=== PATIENT | male | born 1965 | race Caucasian/White ===

== ENCOUNTER 2019-03-27 07:32 | Emergency (ER) | payer SELFPAY ==
[2019-03-27] MEDS ORDERED: KETOROLAC 30 MG/ML INJ IV ONE (08:04)
[2019-03-27] MEDS ORDERED: KETOROLAC 30 MG/ML INJ ONE (08:22)
[2019-03-27 08:37] LABS: Absolute Lymphocytes (CBC) 1.1 K/uL (0.7-4.9); Basophils % 0.7 % (0-1.3); Hematocrit 45.3 % (39.6-49.0); Lymphocytes % 20.8 % (15.3-44.8); MPV 10.4 fL (7.6-11.3); RBC Red Blood Cell Count 4.65 M/uL (4.33-5.43)
[2019-03-27 08:43] LABS: BUN Blood Urea Nitrogen 17 mg/dL (7-18); Bicarbonate 27 mmol/L (21-32); Creatine Phosphokinase 154 U/L (39-308); Glucose Level 75 mg/dL (74-106); Sodium Level 141 mmol/L (136-145)
[2019-03-27 09:11] LABS: Blood Morphology Comment NOT SEEN (NOT SEEN); Platelet Estimate DECR
--- NOTE | 2019-03-27 15:55 | ER ---
Nurse's Notes [facility] Name: Vlad Rojas Age: 53 yrs Sex: Male : 1965 Arrival Date: 03/27/2019 Time: 07:37 Bed External Waiting [facility] MD: Diagnosis: Muscle spasm Presentation: 03/27 07:56 Presenting complaint: Patient states: BLE SCIATICA PATTERN PAIN x2 WK. Transition of bp care: patient was not received from another setting of care. Onset of symptoms is unknown. Risk Assessment: Do you want to hurt yourself or someone else? Patient reports no desire to harm self or others. Initial Sepsis Screen: Does the patient meet any 2 criteria? No. Patient's initial sepsis screen is negative. Does the patient have a suspected source of infection? No. Patient's initial sepsis screen is negative. Care prior to arrival: None. 07:56 Method Of Arrival: Ambulatory bp 07:56 Acuity: YANICK 5 bp Triage Assessment: 07:56 General: Appears in no apparent distress. uncomfortable, Behavior is cooperative, bp appropriate for age, anxious. Pain: Complains of pain in right leg and left leg. EENT: No deficits noted. Neuro: No deficits noted. Cardiovascular: No deficits noted. Respiratory: No deficits noted. GI: No signs and/or symptoms were reported involving the gastrointestinal system. : No signs and/or symptoms were reported regarding the genitourinary system. Derm: No deficits noted. Musculoskeletal: No signs and/or symptoms reported regarding the musculoskeletal system. - Immunization history:: Adult Immunizations up to date. - Social history:: Smoking status: Patient uses tobacco products, smokes one pack cigarettes per day. - Ebola Screening: : No symptoms or risks identified at this time. Screenin:00 Abuse screen: Denies threats or abuse. Denies injuries from another. Nutritional bp screening: No deficits noted. Tuberculosis screening: No symptoms or risk factors identified. Fall Risk None identified. Assessment: 08:00 General: SEE TRIAGE NOTE. bp 09:45 Reassessment: PT D/C HOME AMBULATORY , DX WITH MUSCLE SPASM. bp Vital Signs: 07:56 BP 151 / 69; Pulse 73; Resp 16; Temp 97; Pulse Ox 98% ; Weight 97.52 kg; Height 5 ft. bp 10 in. (177.80 cm); 09:11 BP 112 / 56; Pulse 67; Resp 15; Pulse Ox 97% ; bp 07:56 Body Mass Index 30.85 (97.52 kg, 177.80 cm) bp ED Course: 07:37 Patient arrived in ED. as 07:53 [facility]C [facility] kb 07:53 Tr Patel MD is Attending Physician. kb 07:56 Mike Banks, RN is Primary Nurse. bp 07:56 Arm band placed on. bp 07:57 Triage completed. bp 08:00 Patient has correct armband on for positive identification. Bed in low position. Call bp light in reach. Side rails up X2. 08:25 Inserted saline lock: 20 gauge in right forearm, using aseptic technique. Blood bp collected. 09:46 No provider procedures requiring assistance completed. IV discontinued, intact, bp bleeding controlled, No redness/swelling at site. Pressure dressing applied. Administered Medications: No medications were administered Outcome: 09:19 Discharge ordered by . kb 09:46 Discharged to home ambulatory. bp 09:46 Condition: stable 09:46 Discharge instructions given to patient, Instructed on discharge instructions, follow up and referral plans. medication usage, Demonstrated understanding of instructions, follow-up care, medications, Prescriptions given X 2. 09:50 Patient left the ED. iw Signatures: Alisa Torres FNP-C FNP-Ckb Martinez, Amelia as Williams, Irene, RN RN iw Mike Banks, RN RN bp Corrections: (The following items were deleted from the chart) 14:00 13:59 Patient left the ED. iw iw
--- NOTE | 2019-03-27 15:55 | EDPHYS ---
Physician Documentation [facility] Name: Vlad Rojas Age: 53 yrs Sex: Male : 1965 Arrival Date: 03/27/2019 Time: 07:37 Bed External Waiting Private MD: ED Physician Tr Patel HPI: 03/27 09:53 This 53 yrs old Male presents to ER via Ambulatory with complaints of muscle cramps. kb 09:55 The patient presents with cramps. The complaints affect the right hamstring and left kb hamstring. Context: The problem was sustained at home, resulted from an unknown cause, the patient can fully bear weight, the patient is able to ambulate. Onset: The symptoms/episode began/occurred 2 week(s) ago. Modifying factors: The symptoms are alleviated by nothing. the symptoms are aggravated by nothing. Associated signs and symptoms: The patient has no apparent associated signs or symptoms. Severity of symptoms: At their worst the symptoms were moderate, in the emergency department the symptoms are unchanged. The patient has not experienced similar symptoms in the past. The patient has not recently seen a physician. - Immunization history:: Adult Immunizations up to date. - Social history:: Smoking status: Patient uses tobacco products, smokes one pack cigarettes per day. - Ebola Screening: : No symptoms or risks identified at this time. ROS: 09:55 Constitutional: Negative for fever, chills, and weight loss, Cardiovascular: Negative kb for chest pain, palpitations, and edema, Respiratory: Negative for shortness of breath, cough, wheezing, and pleuritic chest pain, Abdomen/GI: Negative for abdominal pain, nausea, vomiting, diarrhea, and constipation, Back: Negative for injury and pain, : Negative for injury, bleeding, discharge, and swelling, Skin: Negative for injury, rash, and discoloration, Neuro: Negative for headache, weakness, numbness, tingling, and seizure. 09:57 MS/extremity: Positive for pain, cramping. kb Exam: 09:58 Constitutional: This is a well developed, well nourished patient who is awake, alert, kb and in no acute distress. Head/Face: Normocephalic, atraumatic. ENT: Nares patent. No nasal discharge, no septal abnormalities noted. Tympanic membranes are normal and external auditory canals are clear. Oropharynx with no redness, swelling, or masses, exudates, or evidence of obstruction, uvula midline. Mucous membranes moist. Neck: Trachea midline, no thyromegaly or masses palpated, and no cervical lymphadenopathy. Supple, full range of motion without nuchal rigidity, or vertebral point tenderness. No Meningismus. Chest/axilla: Normal chest wall appearance and motion. Nontender with no deformity. No lesions are appreciated. Cardiovascular: Regular rate and rhythm with a normal S1 and S2. No gallops, murmurs, or rubs. Normal PMI, no JVD. No pulse deficits. Respiratory: Lungs have equal breath sounds bilaterally, clear to auscultation and percussion. No rales, rhonchi or wheezes noted. No increased work of breathing, no retractions or nasal flaring. Abdomen/GI: Soft, non-tender, with normal bowel sounds. No distension or tympany. No guarding or rebound. No evidence of tenderness throughout. Back: No spinal tenderness. No costovertebral tenderness. Full range of motion. Skin: Warm, dry with normal turgor. Normal color with no rashes, no lesions, and no evidence of cellulitis. MS/ Extremity: Pulses equal, no cyanosis. Neurovascular intact. Full, normal range of motion. Neuro: Awake and alert, GCS 15, oriented to person, place, time, and situation. Cranial nerves II-XII grossly intact. Motor strength 5/5 in all extremities. Sensory grossly intact. Cerebellar exam normal. Normal gait. Vital Signs: 07:56 BP 151 / 69; Pulse 73; Resp 16; Temp 97; Pulse Ox 98% ; Weight 97.52 kg; Height 5 ft. bp 10 in. (177.80 cm); 09:11 BP 112 / 56; Pulse 67; Resp 15; Pulse Ox 97% ; bp 07:56 Body Mass Index 30.85 (97.52 kg, 177.80 cm) bp MDM: 07:53 Patient medically screened. kb 09:57 Data reviewed: vital signs, nurses notes. Data interpreted: Pulse oximetry: on room air kb is 97 %. Interpretation: normal. Counseling: I had a detailed discussion with the patient and/or guardian regarding: the historical points, exam findings, and any diagnostic results supporting the discharge/admit diagnosis, lab results, the need for outpatient follow up, a family practitioner, to return to the emergency department if symptoms worsen or persist or if there are any questions or concerns that arise at home. Administered Medications: No medications were administered Disposition: 13:42 Co-signature as Attending Physician, Tr Patel MD. rn Disposition: 03/27/19 09:19 Discharged to Home. Impression: Muscle spasm. - Condition is Stable. - Discharge Instructions: Muscle Cramps and Spasms. - Prescriptions for Ibuprofen 600 mg Oral Tablet - take 1 tablet by ORAL route every 6 hours As needed take with food; 30 tablet. Cyclobenzaprine 10 mg Oral Tablet - take 1 tablet by ORAL route every 8 hours As needed; 21 tablet. - Medication Reconciliation Form, Thank You Letter, Antibiotic Education, Prescription Opioid Use form. - Follow up: Emergency Department; When: As needed; Reason: Worsening of condition. Follow up: Private Physician; When: 2 - 3 days; Reason: Recheck today's complaints, Continuance of care, Re-evaluation by your physician. Signatures: Alisa Torres, EVS ATTENDANT-C EVS ATTENDANT-Ckb Harleen Lynn RN RN iw Nieto, Roman, MD MD rn Peltier, Brian, RN RN bp Corrections: (The following items were deleted from the chart) 09:57 09:55 Constitutional: Negative for fever, chills, and weight loss, Cardiovascular: kb Negative for chest pain, palpitations, and edema, Respiratory: Negative for shortness of breath, cough, wheezing, and pleuritic chest pain, Abdomen/GI: Negative for abdominal pain, nausea, vomiting, diarrhea, and constipation, Back: Negative for injury and pain, : Negative for injury, bleeding, discharge, and swelling, MS/Extremity: Negative for injury and deformity, Skin: Negative for injury, rash, and discoloration, Neuro: Negative for headache, weakness, numbness, tingling, and seizure, kb 13:59 09:19 03/27/2019 09:19 Discharged to Home. Impression: Muscle spasm. Condition is iw Stable. Forms are Medication Reconciliation Form, Thank You Letter, Antibiotic Education, Prescription Opioid Use. Follow up: Emergency Department; When: As needed; Reason: Worsening of condition. Follow up: Private Physician; When: 2 - 3 days; Reason: Recheck today's complaints, Continuance of care, Re-evaluation by your physician. kb
[2019-03-27 17:55] VITALS: TEMP 97
[2019-03-27 17:56] VITALS: BP 112/56; O2SAT 97
== END 2019-03-27 13:59 | disposition home or self-care (01) ==
LOC: ER 07:32
DX: M62.838 Other muscle spasm (principal); F17.210 Nicotine dependence, cigarettes, uncomplicated
CPT/HCPCS: 36415; 80048; 82550; 85025; 99283

== ENCOUNTER 2024-04-12 19:44 | Emergency (ER) | payer OTHER ==
--- OUTSIDE RECORDS SUMMARY | 2024-04-12 19:46 | XMS REPORT | Continuity of Care Document ---
Author Name Unknown Address [address] [place] [address] [facility] thconnect Address [address] [place] [address] Care Team Providers Care Canopy Inspector Name Role Phone Unavailable Unavailable Unavailable Encounters Start Date/Time End Date/Time Encounter Type Admission Type Attending [facility] Emergency Department Facility Care Department Encounter ID Source 2023-02-11 09:31:17 2023-02-11 09:31:17 Outpatient [facility] SFA [id number] Rell Hensley 2023-01-04 16:53:22 2023-01-04 16:53:22 Outpatient SFA SFA [id number] Rell Hensley 2022-04-10 09:53:38 2022-04-10 09:53:38 Outpatient [facility]FA SFA [id number] Rell Hensley
[2024-04-13 00:31] LABS: Sqamous Epithelial <5 /HPF (None Seen); Urine Bacteria <20 /HPF (<20); Urine Bilirubin NEGATIVE (Negative); Urine Blood 3+ (OVER) (Negative); Urine Clarity Extremely Turbid (Clear); Urine Color Light-Orange (Yellow); Urine Crystals Unidentified Few /HPF (None Seen); Urine Culture Reflex Order REFLEXED; Urine Glucose NEGATIVE (Negative); Urine Ketones NEGATIVE (Negative); Urine Micro Reflex YN NO BILL MICROSCOPIC; Urine Mucus Slight /HPF (None Seen); Urine Nitrite NEGATIVE (Negative); Urine Protein 3+ (Negative); Urine RBC >50 /HPF (None Seen); Urine Urobilinogen Normal (Normal); Urine WBC >50 /HPF (<5); Urine WBC Clump Occasional /HPF (None Seen)
--- NOTE | 2024-04-13 01:10 | ER ---
Nurse's Notes [facility] Name: Vlad Rojas Age: 58 yrs Sex: Male : 1965 Arrival Date: 04/12/2024 Time: 19:44 Bed 9 Private MD: Diagnosis: UTI/ Urinary tract infection, site not specified Presentation: 04/12 20:24 Chief complaint: Patient states: Unable to urinate onset this morning. Pt states that cm10 he was also having urinary frequency prior to the urinary retention. Coronavirus screen: Client denies travel out of the [place] in the last 14 days. Ebola Screen: Patient denies travel to an Ebola-affected area in the 21 days before illness onset. No symptoms or risks identified at this time. Initial Sepsis Screen: Does the patient meet any 2 criteria? No. Patient's initial sepsis screen is negative. Does the patient have a suspected source of infection? No. Patient's initial sepsis screen is negative. Risk Assessment: Do you want to hurt yourself or someone else? Patient reports no desire to harm self or others. Onset of symptoms was April 12, 2024. 20:24 Method Of Arrival: Ambulatory cm10 20:24 Acuity: YANICK 3 cm10 Triage Assessment: 20:25 General: Appears in no apparent distress. comfortable, Behavior is calm, cooperative. cm10 Pain: Denies pain. Neuro: No deficits noted. Level of Consciousness is awake, alert, obeys commands, Oriented to person, place, time, situation, Appropriate for age. Respiratory: No deficits noted. Airway is patent Respiratory effort is even, unlabored, Respiratory pattern is regular, symmetrical. : Reports inability to void, pain with urination, urinary frequency. Musculoskeletal: No deficits noted. Range of motion: intact in all extremities. Historical: - Allergies: 20:25 No Known Allergies; cm10 - PMHx: 20:25 COPD; cm10 - Immunization history:: Adult Immunizations up to date. - Infectious Disease History:: Denies. - Social history:: Smoking status: unknown. Screenin:26 [facility] ED Fall Risk Assessment (Adult) History of falling in the last 3 months, cm10 including since admission No falls in past 3 months (0 pts) Confusion or Disorientation No (0 pts) Intoxicated or Sedated No (0 pts) Impaired Gait No (0 pts) Mobility Assist Device Used No (0 pt) Altered Elimination No (0 pt) Score/Fall Risk Level 0 - 2 = Low Risk Oriented to surroundings, Maintained a safe environment, Hourly rounding (assess needs \T\ fall precautionary measures) done. Abuse screen: Denies threats or abuse. Denies injuries from another. Nutritional screening: No deficits noted. Tuberculosis screening: No symptoms or risk factors identified. Assessment: 21:45 Reassessment: Pt noted to have urinated on himself. cm10 22:05 Reassessment: Attempted to place alba catheter with no success/. cm10 04/13 01:38 Reassessment: Patient appears in no apparent distress at this time. Patient and/or jb4 family updated on plan of care and expected duration. Pain level reassessed. Patient is alert, oriented x 3, equal unlabored respirations, skin warm/dry/pink. Pt verbalized understanding of d/c and follow up instruction, ambulated to lobby to wait for ride with steady gait. Vital Signs: 04/12 20:24 BP 129 / 86; Pulse 87; Resp 18; Temp 98.9; Pulse Ox 90% on R/A; Weight 122.47 kg; cm10 Height 5 ft. 10 in. ; Pain 0/10; 20:24 Body Mass Index 38.74 (122.47 kg, 177.8 cm) cm10 20:24 Pain Scale: Adult cm10 ED Course: 19:45 Patient arrived in ED. ra3 20:10 Robert Park PA is PHCP. cp 20:10 Robert Gage MD is Attending Physician. cp 20:15 Bambi Timmons, WILLIAM is Primary Nurse. cm10 20:24 Triage completed. cm10 20:25 Arm band placed on Patient placed in an exam room, on a stretcher. cm10 20:25 Oxygen administration via nasal cannula \T\ 2L/min Response to oxygen therapy: symptoms cm10 improved. 20:26 Patient has correct armband on for positive identification. Bed in low position. Call cm10 light in reach. Side rails up X2. Provided Education on: ER process and procedures.. 22:08 Report given to WILLIAM Morin. cm10 04/13 00:04 Urine W/Microscopic (UAM) Sent. tl4 00:04 Urine collected: male purewick. tl4 01:38 No provider procedures requiring assistance completed. Patient did not have IV access jb4 during this emergency room visit. Administered Medications: 01:37 Drug: Rocephin (cefTRIAXone) IM 1 grams IM once Route: IM; Site: left gluteus; jb4 01:37 Follow up: Response: Medication administered at discharge. jb4 01:37 Drug: LevOfloxacin PO 750 mg PO once Route: PO; jb4 01:37 Follow up: Response: Medication administered at discharge. jb4 Medication: 04/12 20:26 VIS not applicable for this client. cm10 Outcome: 04/13 01:09 Discharge ordered by MD. obed 01:38 Discharged to home ambulatory, jb4 01:38 Condition: stable 01:38 Discharge instructions given to patient, Instructed on discharge instructions, follow up and referral plans. medication usage, Demonstrated understanding of instructions, follow-up care, medications, Prescriptions given X 1, 01:39 Patient left the ED. jb4 Signatures: Robert Park PA PA cp Bryson, James RN RN jb4 Bambi Timmons RN RN 10 Mikel Hernández RN RN tl4 Gerri Flores 3
--- NOTE | 2024-04-13 01:10 | EDPHYS ---
Physician Documentation [facility] Name: Vlad Rojas Age: 58 yrs Sex: Male : 1965 Arrival Date: 04/12/2024 Time: 19:44 Bed 9 Private MD: ED Physician Robert Gage HPI: 04/12 20:55 This 58 yrs old Male presents to ER via Ambulatory with complaints of Urinary Retention.cp 20:55 The patient presents with urinary symptoms, urinary frequency, constant, difficulty cp urinating and concern for retention of urine. Onset: The symptoms/episode began/occurred this morning. Associated signs and symptoms: Pertinent positives: abdominal pain, Pertinent negatives: constipation, diarrhea, fever, hematuria, vomiting. 20:55 Severity of symptoms: in the emergency department the symptoms are unchanged, despite cp home interventions. Historical: - Allergies: 20:25 No Known Allergies; cm10 - PMHx: 20:25 COPD; cm10 - Immunization history:: Adult Immunizations up to date. - Infectious Disease History:: Denies. - Social history:: Smoking status: unknown. ROS: 21:00 Constitutional: Negative for body aches, chills, fever, poor PO intake, cp 21:00 Eyes: Negative for injury, pain, redness, and discharge, cp 21:00 Cardiovascular: Negative for chest pain, palpitations, 21:00 Respiratory: Negative for cough, shortness of breath, wheezing, 21:00 Abdomen/GI: Positive for abdominal pain, Negative for vomiting, diarrhea, constipation, 21:00 Back: Negative for pain at rest, pain with movement, 21:00 : Positive for urinary frequency, difficulty urinating, Negative for hematuria, testicular pain 21:00 Neuro: Negative for altered mental status, dizziness, headache, numbness, syncope, weakness, 21:00 All other systems are negative, Exam: 21:05 Constitutional: The patient appears in no acute distress, alert, awake, cp non-diaphoretic, non-toxic, well developed, well nourished, uncomfortable, 21:05 Head/Face: Normocephalic, atraumatic. cp 21:05 Eyes: Periorbital structures: appear normal, Conjunctiva: normal, no exudate, no injection, Sclera: no appreciated abnormality, Lids and lashes: appear normal, bilaterally, 21:05 ENT: External ear(s): are unremarkable, Nose: is normal, Mouth: Lips: moist, Oral mucosa: moist, Posterior pharynx: Airway: no evidence of obstruction, patent, 21:05 Chest/axilla: Inspection: normal, 21:05 Cardiovascular: Rate: normal, Rhythm: regular, 21:05 Respiratory: the patient does not display signs of respiratory distress, Respirations: normal, no use of accessory muscles, no retractions, Breath sounds: are clear throughout, no decreased breath sounds, no stridor, no wheezing, 21:05 Abdomen/GI: Inspection: obese Palpation: soft, in all quadrants, mild abdominal tenderness, in the suprapubic area, 21:05 Back: ROM is normal, CVA tenderness, is absent, 21:05 : Male external genitalia: normal, no swelling, 21:05 Skin: no rash present. Vital Signs: 20:24 BP 129 / 86; Pulse 87; Resp 18; Temp 98.9; Pulse Ox 90% on R/A; Weight 122.47 kg; cm10 Height 5 ft. 10 in. ; Pain 0/10; 20:24 Body Mass Index 38.74 (122.47 kg, 177.8 cm) cm10 20:24 Pain Scale: Adult cm10 MDM: 20:15 Medical Screening Exam initiated cp 04/13 01:08 Data reviewed: vital signs, nurses notes, lab test result(s), and as a result, I will cp discharge patient. 01:08 Differential diagnosis: UTI, urinary retention, prostatitis, urethritis. I considered cp the following discharge prescriptions or medication management in the emergency department Medications were administered in the Emergency Department. See MAR. Care significantly affected by the following chronic conditions: Chronic Obstructive Pulmonary Disease. Counseling: I had a detailed discussion with the patient and/or guardian regarding the historical points, exam findings, and any diagnostic results supporting the discharge/admit diagnosis, lab results, the need for outpatient follow up, a family practitioner, to return to the emergency department if symptoms worsen or persist or if there are any questions or concerns that arise at home. Response to treatment: the patient's symptoms have mildly improved after treatment, and as a result, I will discharge patient. 04/12 20:53 Order name: Urine W/Microscopic (UAM); Complete Time: 00:48 04/13 00:48 Interpretation: Reviewed. cp 04/13 00:39 Order name: Urine Culture EDPR 04/12 20:53 Order name: Bladder Scanner: pre and post void cp Administered Medications: 01:37 Drug: Rocephin (cefTRIAXone) IM 1 grams IM once Route: IM; Site: left gluteus; jb4 01:37 Follow up: Response: Medication administered at discharge. jb4 01:37 Drug: LevOfloxacin PO 750 mg PO once Route: PO; jb4 01:37 Follow up: Response: Medication administered at discharge. jb4 Disposition Summary: 04/13/24 01:09 Discharge Ordered Notes: Location: Home cp Problem: new cp Symptoms: have improved cp Condition: Stable cp Diagnosis - UTI/ Urinary tract infection, site not specified cp Followup: cp - With: Private Physician - When: 1 week - Reason: Recheck today's complaints Discharge Instructions: - Discharge Summary Sheet cp - Urinary Tract Infection, Adult cp Forms: - Medication Reconciliation Form cp - Antibiotic Education cp - Prescription Opioid Use cp - Patient Portal Instructions cp - Leadership Thank You Letter cp Prescriptions: - levofloxacin 500 mg Oral tablet - take 1 tablet ORAL route once daily for 8-10 days continue taking morning of cp 04/14/2024; 9 tablet; Refills: 0, Product Selection Permitted Signatures: Dispatcher [employer] EDPR Robert Park PA PA cp Bryson, James RN RN jb4 Bambi Timmons RN RN cm10
[2024-04-13] MEDS ORDERED: CEFTRIAXONE 1000 MG/VIAL ONE (01:21)
[2024-04-13] MEDS ORDERED: WATER FOR INJ,STERILE 10 ML ONE (01:21)
[2024-04-13] MEDS ORDERED: levoFLOXacin 250 MG TAB ONE (01:21)
[2024-04-13 04:52] VITALS: BP 129/86; TEMP 98.9; O2SAT 90
== END 2024-04-13 01:39 | disposition home or self-care (01) ==
LOC: ER 19:44
DX: N39.0 Urinary tract infection, site not specified (principal); J44.9 Chronic obstructive pulmonary disease, unspecified
CPT/HCPCS: 87088; 81001; 87086; 96372; 99284; J0696